=== PATIENT | male | born 1990 | race Caucasian/White ===

== ENCOUNTER 2017-06-16 11:15 | Emergency (ER) | payer OTHER ==
[2017-06-16 11:22] VITALS: BP 115/57; PULSE 63; RESP 18; TEMP 98.1; O2SAT 94
--- NOTE | 2017-06-16 11:43 | EDPHY ---
H & P Time Seen by Provider: 06/16/17 11:41 HPI/ROS: HPI: Mr. lala is a 27 yr, male who presents with Chief Complaint: Needlestick Location: left bottom of foot Quality: Needlestick Duration: Last night Signs and Symptoms: No redness, no warmth, no bleeding, no drainage, no pain Timing: Sudden Severity: Mild Context: Up-to-date on immunizations. Last tetanus booster was given 2014 per patient. Patient was moved into a new apartment last night which is carpeted patient was in bare feet and stepped on carpet and felt stuck in the bottom of his foot. Patient pulled out what appears to be a small insulin needle. Patient brought needle into ER. Modifying Factors: Patient washed with soap and water last night after removal of the needle. Comment: ROS: Eyes: No blurred vision Respiratory: No shortness of breath, no cough Cardiovascular: No chest pain Gastrointestinal: No nausea, no vomiting no diarrhea Genitourinary: No dysuria Extremities: No myalgias Neurologic: No weakness, no numbness Skin: No rashes Hematologic: No bruising, no bleeding MEDICAL/SURGICAL HISTORY: Generally healthy. Two right wrist surgeries, dental surgery-[facility]eers Social History: Lives with his girlfriend. Smoking Status: Never smoked Physical Exam: CONSTITUTIONAL: Pleasant white male, awake and alert, no obvious distress HEENT: Atraumatic and normocephalic, PERRL, EOMI. Tympanic membranes clear. . Oropharynx clear, no exudate and moist pink mucosa. Airway patent. No lymphadenopathy. No meningismus. Cardiovascular: Normal S1/S2, regular rate, regular rhythm, without murmur rub or gallop. PULMONARY/CHEST: Symmetrical and nontender. Clear to auscultation bilaterally Good air movement. No accessory muscle usage. ABDOMEN: Soft, nondistended, nontender, no rebound, no guarding, no peritoneal signs, no masses or organomegaly. No CVAT. EXTREMITIES: 2/2 pulses, no deformities, no clubbing, no cyanosis or edema. NEUROLOGICAL: no focal neuro deficits. GCS 15. SKIN: Warm and dry, plantar aspect of left foot shows a small pinpoint area below the 3rd metatarsal; no redness; no warmth; no drainage; no bleeding. no rash. Good capillary refill. Constitutional: Initial Vital Signs Temperature (C) 36.7 C 08/13/17 11:19 Heart Rate 63 06/16/17 11:19 Respiratory Rate 18 06/16/17 11:19 Blood Pressure 115/57 L 06/16/17 11:19 O2 Sat (%) 94 06/16/17 11:19 O2 Delivery Mode Room Air Allergies/Adverse Reactions: No Known Allergies Allergy (Verified 06/16/17 11:18) Home Medications: Medication Instructions Recorded No Medications [NO HOME 1 [facility] 01/[facility] MEDICATIONS] Medical Decision Making ED Course/Re-evaluation: labs ordered Tetanus up-to-date HIV type 1/type 2, hepatitis-B surface, hepatitis-C antibody total ordered per needle post exposure I spoke with Infectious Disease, Leona Arita, who advises patient is low risk with minimal blood exposure. Recommends monitoring. Next labs were not for 2 weeks the patient should call for appointment at the [facility] around that time per her recommendation. - Data Points Laboratory Results: 06/16/17 11:59 Hep Bs Antibody Pending Hepatitis C Antibody Pending HIV 1&2 Antibody Pending Departure - Departure Disposition: Home, Routine, Self-Care Clinical Impression: Needle stick, hypodermic, accidental Qualifiers: Encounter type: initial encounter Qualified Code(s): W46.0XXA - Contact with hypodermic needle, initial encounter Clinical Impression: (Ruled Out): Needle stick injury Condition: Good Instructions: Postexposure Prophylaxis (ED) Additional Instructions: Next labs are due in in 2 weeks the patient should call for appointment around that time. Referrals: NONE *PRIMARY CARE P,. [Primary Care Provider] - As per Instructions Leona Arita MD [Medical Doctor] - As per Instructions
[2017-06-17 01:28] LABS: HEPATITIS B SURFACE ANTIBODY POSITIVE (NEGATIVE)
== END 2017-06-16 12:12 | disposition home or self-care (01) ==
DX: S91.332A Puncture wound without foreign body, left foot, initial encounter (principal); W46.0XXA Contact with hypodermic needle, initial encounter; Y92.039 Unspecified place in apartment as the place of occurrence of the external cause; Y99.8 Other external cause status; Y93.89 Activity, other specified
CPT/HCPCS: G0472